=== PATIENT | male | born 1985 | race Caucasian/White ===

== ENCOUNTER 2017-09-03 20:48 | Emergency (ER) | payer MEDICAID, OTHER ==
--- NOTE | 2017-09-03 21:13 | EDM.PDOC ---
ED HPI GENERAL MEDICAL PROBLEM - General Chief Complaint: ENT Problem Stated Complaint: DIFFULTY WITH HEARING Time Seen by Provider: 09/03/17 21:13 Source of Information: Reports: Patient History Limitations: Reports: No Limitations - History of Present Illness INITIAL COMMENTS - FREE TEXT/NARRATIVE: HISTORY AND PHYSICAL: History of present illness: 32-year-old male presenting emergency department with chief complaint of not able to hear. States that it's his symptoms started afte plane trip 3 days ago. States that it 's progressively gotten worse to the point where he is having problems hearing anything and feels like he is in a tunnel. Denies any fevers, chills, nausea, vomiting, or other signs of systemic infection. Otherwise generally healthy with no medical allergies. Currently denies any chest pain, palpitations, shortness breath, or syncopal episodes. Review of systems: As per history of present illness and below otherwise all systems reviewed and negative. Past medical history: As per history of present illness and as reviewed below otherwise noncontributory. Surgical history: As per history of present illness and as reviewed below otherwise noncontributory. Social history: No reported history of drug or alcohol abuse. Family history: As per history of present illness and as reviewed below otherwise noncontributory. Physical exam: HEENT: Left tympanic membrane is bulging nonerythematous, right tympanic membrane has retracted nonerythematous, Atraumatic, normocephalic, pupils reactive, negative for conjunctival pallor or scleral icterus, mucous membranes moist, throat clear, neck supple, nontender, trachea midline. Lungs: Clear to auscultation, breath sounds equal bilaterally, chest nontender. Heart: S1S2, regular, negative for clicks, rubs, or JVD. Abdomen: Soft, nondistended, nontender. Negative for masses or hepatosplenomegaly. Negative for costovertebral tenderness. Pelvis: Stable nontender. Genitourinary: Deferred. Rectal: Deferred. Extremities: Atraumatic, negative for cords or calf pain. Neurovascular unremarkable. Neuro: Awake, alert, oriented. Cranial nerves II through XII unremarkable. Cerebellum unremarkable. Motor and sensory unremarkable throughout. Exam nonfocal. Diagnostics: [] Therapeutics: Afrin 2 puffs each nostril, Flonase 2 puffs each nostril Impression: Loss of hearing due to pressure change without tympanic perforation Plan: Patient was given directions use Flonase and Afrin twice daily for maximum 5 days to open up collateral draining canals and to hopefully relieve some of the pressure behind his eardrums. There is no signs of infection and this was most likely to sudden descent in elevation with some sinus congestion prior to. Patient was told to follow-up with primary care provider or return to emergency department if any new or worsening symptoms. He was told that this may take 5-7 days to completely be relieved. I did not appreciate any damage to the tympanic membranes on exam. right ear Pain Score (Numeric/FACES): 5 - Related Data Allergies Allergy/AdvReac Type Severity Reaction Status Date / Time No Known Allergies Allergy Verified 09/03/17 20:57 Home Meds: Home Meds . [No Known Home Meds] 09/03/17 [History] Past Medical History HEENT History: Reports: Hard of Hearing Social & Family History - Family History Family Medical History: Noncontributory - Tobacco Use Smoking Status *Q: Never Smoker - Recreational Drug Use Recreational Drug Use: No ED ROS GENERAL - Review of Systems Review Of Systems: ROS reveals no pertinent complaints other than HPI. ED EXAM, GENERAL - Physical Exam Exam: See Below Course - Vital Signs Last Recorded V/S: Last Vital Signs Temp 97.9 F 09/03/17 20:48 Pulse 96 09/03/17 20:48 Resp 18 09/03/17 20:48 BP 128/73 09/03/17 20:48 Pulse Ox 96 09/03/17 20:48 - Orders/Labs/Meds Meds: Medications Discontinued Medications Generic Name Dose Route Start Last Admin Trade Name Osvaldoq PRN Reason Stop Dose Admin Fluticasone Propionate 2 gm 09/03/17 21:29 09/03/17 21:51 Flonase NASBOTH 09/03/17 21:30 2 gm NOW STA Administration Oxymetazoline HCl 2 ml 09/03/17 21:29 09/03/17 21:52 Afrin Original 0.05% Nasal Monument REAL 09/03/17 21:30 2 ml ONETIME ONE Administration Departure - Departure Time of Disposition: 22:31 Disposition: Home, Self-Care 01 Condition: Good Clinical Impression: Loss of hearing Qualifiers: Hearing loss type: unspecified Laterality: bilateral Qualified Code(s): H91.93 - Unspecified hearing loss, bilateral - Discharge Information Referrals: PCP,None [Primary Care Provider] - Forms: ED Department Discharge Additional Instructions: My general discharge The following information is given to patients seen in the emergency department who are being discharged to home. This information is to outline your options for follow-up care. We provide all patients seen in our emergency department with a follow-up referral. The need for follow-up, as well as the timing and circumstances, are variable depending upon the specifics of your emergency department visit. If you don't have a primary care physician on staff, we will provide you with a referral. We always advise you to contact your personal physician following an emergency department visit to inform them of the circumstance of the visit and for follow-up with them and/or the need for any referrals to a consulting specialist. The emergency department will also refer you to a specialist when appropriate. This referral assures that you have the opportunity for follow-up care with a specialist. All of these measure are taken in an effort to provide you with optimal care, which includes your follow-up. Under all circumstances we always encourage you to contact your private physician who remains a resource for coordinating your care. When calling for follow-up care, please make the office aware that this follow-up is from your recent emergency room visit. If for any reason you are refused follow-up, please contact the [facility] Emergency Department at and asked to speak to the emergency department charge nurse. [facility] [address] [place] [id number] [facility] [address] [place] [address]
[2017-09-03] MEDS ORDERED: Oxymetazoline 0.05% Nasal Spray 15 ML Bottle NAS ONE (21:29)
[2017-09-03] MEDS ORDERED: Fluticasone Propionate Nasal Spray 16 GM Bottle NASBOTH STA (21:29)
[2017-09-03] MEDS ORDERED: Ketorolac 60 MG/2 ML SDV IM ONE (22:41)
== END 2017-09-03 23:11 | disposition home or self-care (01) ==
LOC: MW.ED 20:48
DX: H91.93 Unspecified hearing loss, bilateral (principal)
CPT/HCPCS: 96372; 99283; A9270; J1885; 99282